=== PATIENT | female | born 1990 | race Caucasian/White ===

== ENCOUNTER 2018-10-28 11:01 | Emergency (ER) | payer MEDICAID ==
[2018-10-28] MEDS ORDERED: DIAZEPAM 5 MG TAB PO ONE (11:29)
[2018-10-28] MEDS ORDERED: HYDROCODONE/APAP 5/325 TAB PO ONE (11:30)
[2018-10-28] MEDS ORDERED: IBUPROFEN 600 MG TAB PO ONE (11:30)
[2018-10-28] MEDS ORDERED: DIAZEPAM 5 MG PREPACK#4 BTL TAKEHOME ONE (12:40)
--- NOTE | 2018-10-28 12:48 | EDPHY ---
H & P Time Seen by Provider: 10/28/18 11:06 HPI/ROS: CHIEF COMPLAINT: Low back pain, blood in urine. HISTORY OF PRESENT ILLNESS: Patient states that she has "severe back pain". She states it began Wednesday morning when she woke up. She states she "thought I slept weird". She did take 1 Aleve without much help. She denies any recent trauma. She has had no fevers or chills. She did not have any unusual physical activity. In addition she states that she noticed "drops" of blood in her urine last night and this morning her urine was dark orange. She denies dysuria but she has noticed some frequency. She had her last menstrual period finish eating on October 18. She has had no vaginal discharge. The back pain is described as bilateral lower back pain. It is worse with essentially any movement. It is also worse with deep breath but patient denies shortness of breath or chest pain. No incontinence. No numbness or weakness. REVIEW OF SYSTEMS: Constitutional: No fever, no chills. Eyes: No discharge. ENT: No sore throat. Cardiovascular: No chest pain, no palpitations. Respiratory: No cough, no shortness of breath. Gastrointestinal: No abdominal pain, no vomiting. Genitourinary: Per HPI Musculoskeletal: Per HPI Skin: No rashes. Neurological: No headache. General Appearance: Alert, mild distress Eyes: Pupils equal and round no pallor or injection. ENT, Mouth: Mucous membranes moist. Respiratory: There are no retractions, lungs are clear to auscultation. Cardiovascular: Regular rate and rhythm. Gastrointestinal: Abdomen is soft and nontender, bowel sounds normal. Neurological: Awake, alert, cranial nerves intact. No focal neurologic deficits. Skin: Warm and dry, no rashes. Musculoskeletal: Neck is supple nontender. Extremities are symmetrical, full range of motion, no edema. No CT LS spine tenderness to palpation. Bilateral paraspinal muscles in the mid and low back with palpable muscle spasm and very tender to touch. Normal straight leg raise. Psychiatric: Patient is oriented X 3, she is anxious. Medical/surgical history: Anxiety, costochondritis Social history: Smokes tobacco. Smoking Status: Heavy smoker Constitutional: Initial Vital Signs Temperature (C) 36.5 C 10/28/18 11:07 Heart Rate 96 03/01/19 11:07 Respiratory Rate 18 10/28/18 11:07 Blood Pressure 138/111 H 10/28/18 11:07 O2 Sat (%) 98 10/28/18 11:07 Allergies/Adverse Reactions: No Known Allergies Allergy (Verified 10/28/18 11:08) Home Medications: Medication Instructions Recorded Ativan 10/28/18 Medical Decision Making - Diagnostics Imaging Results: Imaging Impressions Abdomen/Pelvis CT 10/28/18 11:31 Impression: 1. 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 2. Solitary nonobstructive right nephrolith. Results discussed with Bella Sheets at 12:04 PM. General information for patients regarding this examination can be found at [email or web address]. If you have questions or comments about this report, please contact me at [phone] (hospital) or [phone] (cell). Imaging: Discussed imaging studies w/ comber operator Radiologist ED Course/Re-evaluation: 12:00 radiology read of large pelvic mass consistent with dermoid cyst. 12:10 p.m. re-evaluated patient, she shows better movement and decreased pain after medications. Discussed CT scan findings. 12:[address] Zee, OBGYN, regarding likely dermoid cyst. Patient is to follow up with that office on Wednesday or Wednesday of next week for further evaluation. Differential Diagnosis: Differential diagnosis includes but is not limited to musculoskeletal back pain , kidney stone, urinary tract infection, pyelonephritis. After evaluation patient with 1 small right-sided nonobstructing kidney stone likely not causing her symptoms but may be contributing to the hematuria. Of note patient with large, 10 cm, dermoid cyst in the pelvic region. No signs of other intra- abdominal pathology or ureteral stone. No signs of urinary tract infection. Recommended she follow up with her primary care physician for possible referral to physical therapy for back pain. She has referral to OBGYN for cyst. Understands follow-up and return precautions. Stable for discharge. - Data Points Medications Given: Discontinued Medications Hydrocodone Bitart/Acetaminophen ([place] 5/325) 1 tab PO EDNOW ONE Stop: 10/28/18 11:31 Last Admin: 10/28/18 11:33 Dose: 1 tab Diazepam (Valium) 5 mg PO EDNOW ONE Stop: 10/28/18 11:30 Last Admin: 10/28/18 11:33 Dose: 5 mg Ibuprofen (Motrin) 600 mg PO EDNOW ONE Stop: 10/28/18 11:31 Last Admin: 10/28/18 11:33 Dose: 600 mg Point of Care Test Results: Urine Collection Date 10/28/18 Collection Time 11:10 HCG Results Negative Urine Dip Collection Date 10/28/18 Collection Time 11:10 Specific [place] (1.002-1.030) 1.025 PH (5.0-7.5) 6.0 Leukocytes (Negative) Negative Nitrites (Negative) Negative Protein (Negative) Negative Glucose (Negative) Negative Ketones (Negative) Trace Urobilnogen (0.2-1.0 EU) 0.2 Bilirubin (Negative) Negative Blood (Negative) 2+ Departure - Departure Clinical Impression: Dermoid cyst, Muscle spasm of back Hematuria Qualifiers: Hematuria type: unspecified type Qualified Code(s): R31.9 - Hematuria, unspecified Condition: Fair Instructions: Ovarian Cyst (ED), Muscle Spasm (ED) Additional Instructions: Call the prize jacker office at [phone] this afternoon to make an appointment to be seen on Wednesday or Wednesday of next week. For your back pain use the Valium as discussed. Also you should use 800 mg of ibuprofen every 6-8 hours for the next 48 hr. Take with food, drink plenty of water as well. You can then take it as needed for back pain and spasm. Call your primary care office today as well for follow-up for the back spasms. Have them send you to physical therapy. You should also discussed her anxiety with your primary care doctor as well. Return to the emergency department if you develop any new or concerning symptoms such as uncontrollable pain, nausea, vomiting, fevers or other new symptoms. Referrals: Ekaterina William, FUNMILAYO [Primary Care Provider] - As per Instructions Debi Zee DO [Doctor of Osteopathy] - As per Instructions
[2018-10-28 13:24] VITALS: BP 135/92
== END 2018-10-28 13:00 | disposition home or self-care (01) ==
LOC: CED 11:01
DX: D27.9 Benign neoplasm of unspecified ovary (principal); R31.9 Hematuria, unspecified; M62.830 Muscle spasm of back; F17.200 Nicotine dependence, unspecified, uncomplicated; F41.9 Anxiety disorder, unspecified
CPT/HCPCS: 74176-PO

== ENCOUNTER 2018-11-05 10:36 | Emergency (ER) | payer MEDICAID ==
--- NOTE | 2018-11-05 10:59 | EDPHY ---
H & P Stated Complaint: nausea x 2 days and vomiting this am . 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 She presented at that time with abdominal discomfort and hematuria. She is also found to have a renal stone but no ureteral stone. She followed up with OBGYN this week and had an ultrasound that confirmed a large dermoid cyst and she has surgery planned for next week. She states however that over the last 2 days she began to feel nauseous and today has vomited twice. Nonbloody, no diarrhea. No fever. Her test was negative last week. She does have an IUD in place. No vaginal bleeding or discharge. Currently having no urinary symptoms. Severity: Moderate Modifying factors: None REVIEW OF SYSTEMS: Constitutional: denies: chills, fever, recent illness, recent injury EENTM: denies: blurred vision, double vision, nose congestion Respiratory: denies: cough, shortness of breath Cardiac: denies: chest pain, irregular heart rate, lightheadedness, palpitations Gastrointestinal/Abdominal: See HPI Genitourinary: denies: dysuria, frequency, hematuria, pain Musculoskeletal: denies: joint pain, muscle pain Skin: denies: lesions, rash, jaundice, bruising Neurological: denies: headache, numbness, paresthesia, tingling, dizziness, weakness Hematologic/Lymphatic: denies: blood clots, easy bleeding, easy bruising Immunologic/allergic: denies: HIV/AIDS, transplant 10 systems reviewed and negative except as noted EXAM: GENERAL: Well-appearing, well-nourished and in no acute distress. HEAD: Atraumatic, normocephalic. EYES: Pupils equal round and reactive to light, extraocular movements intact, sclera anicteric, conjunctiva are normal. ENT: TMs normal, nares patent, oropharynx clear without exudates. Moist mucous membranes. NECK: Normal range of motion, supple without lymphadenopathy or JVD. LUNGS: Breath sounds clear to auscultation bilaterally and equal. No wheezes rales or rhonchi. HEART: Regular rate and rhythm without murmurs, rubs or gallops. ABDOMEN: Soft, nontender, normoactive bowel sounds. No guarding, no rebound. No masses appreciated. BACK: No CVA tenderness, no spinal tenderness, step-offs or deformities EXTREMITIES: Normal range of motion, no pitting or edema. No clubbing or cyanosis. NEUROLOGICAL: Cranial nerves II through XII grossly intact. Normal speech, normal gait. 5/5 strength, normal movement in all extremities, normal sensation , normal reflexes PSYCH: Normal mood, normal affect. SKIN: Warm, dry, normal turgor, no visible rashes or lesions. Source: Patient Exam Limitations: No limitations - Personal History LMP (Females 10-55): 22-28 Days Ago Current Tetanus Diphtheria and Acellular Pertussis (TDAP): Yes Tetanus Vaccine Date: WITHIN 10 YRS - Medical/Surgical History Hx Asthma: No Hx Chronic Respiratory Disease: No Hx Diabetes: No Hx Cardiac Disease: No Hx Renal Disease: No Hx Cirrhosis: No Hx Alcoholism: No Hx HIV/AIDS: No Hx Splenectomy or Spleen Trauma: No Other PMH: Anxiety - Family History Significant Family History: No pertinent family hx - Social History Smoking Status: Heavy smoker Alcohol Use: None Constitutional: Initial Vital Signs Temperature (C) 36.9 C 11/05/18 10:43 Heart Rate 97 11/05/18 10:43 Respiratory Rate 20 11/05/18 10:43 Blood Pressure 125/96 H 11/05/18 10:43 O2 Sat (%) 98 11/05/18 10:43 O2 Delivery Mode Room Air Allergies/Adverse Reactions: No Known Allergies Allergy (Verified 11/05/18 10:47) Home Medications: Medication Instructions Recorded Ativan 10/28/18 Metoclopramide [Reglan 10 mg tab 10 mg PO BID PRN #10 tab 11/05/18 (RX)] Valium 5 MG (*) 11/05/18 Medical Decision Making - Diagnostics Imaging Results: Imaging Impressions Pelvic/Renal Ultrasound 11/05/18 10:56 Impression: 1. Intrauterine IUD slightly penetrates into the inner margin of the right uterine myometrium. 2. Left ovarian dermoid (see CT report of October 28, 2018). 3. Normal right ovary. A message was [place] with Ra[place] [facility] [place] 1:01 PM ED Course/Re-evaluation: 1:15 p.m. the patient is still somewhat nauseous. She has not thrown up. She has been hydrated. She continues to decline pain medication. Will add Reglan. We discussed her lab work which is reassuring. Discussed her ultrasound. Left ovary is not visible compared to the cyst and therefore unable to rule out torsion. She states that her OBGYN is likely planning to take her entire ovary out any ways next week. There waiting for a call back on the appointment. 2:00 p.m. The patient is feeling much better after Reglan. She is eager to go home. Differential Diagnosis: Partial list of the Differential diagnosis considered include but were not limited to; ovarian cyst, ovarian torsion, gastroenteritis, and although unlikely based on the history and physical exam, I also considered appendicitis, biliary disease, UTI. I discussed these differential diagnoses and the plan with the patient as well as the usual and expected course. The patient understands that the diagnosis is provisional and that in medicine we are not always correct and that further workup is often warranted. Usual and customary warnings were given. All of the patient's questions were answered. The patient was instructed to return to the emergency department should the symptoms at all worsen or return, otherwise to followup with the physician as we discussed. - Data Points Laboratory Results: 11/05/18 11:12 POC Sodium 142 mEq/L mEq/L (135-145) POC Potassium 3.5 mEq/L mEq/L (3.3-5.0) POC Chloride 107.0 mEq/L mEq/L (97-110) POC Total CO2 20 mEq/L L mEq/L (22-31) POC BUN 12 mg/dL mg/dL (7-23) POC Creatinine 0.5 mg/dL L mg/dL (0.6-1.0) POC Glucose 94 mg/dL mg/dL (70-100) POC Calcium 9.4 mg/dL mg/dL (8.5-10.4) POC Total Bilirubin 0.8 mg/dL mg/dL (0.1-1.4) POC AST 28 IU/L IU/L (14-46) POC ALT 16 IU/L IU/L (9-52) POC Alk Phosphatase 50 IU/L IU/L (38-126) POC Total Protein 7.1 g/dL g/dL (6.3-8.2) POC Albumin 4.0 g/dL g/dL (3.5-5.0) Medications Given: Discontinued Medications Sodium Chloride (Ns) 1,000 mls @ 0 mls/hr IV EDNOW ONE; Wide Open PRN Reason: Protocol Stop: 11/05/18 10:53 Last Admin: 11/05/18 11:06 Dose: 1,000 mls Metoclopramide HCl (Reglan Injection) 10 mg IVP EDNOW ONE Stop: 11/05/18 13:11 Last Admin: 11/05/18 13:20 Dose: 10 mg Ondansetron HCl (Zofran) 4 mg IVP EDNOW ONE Stop: 11/05/18 10:53 Last Admin: 11/05/18 11:07 Dose: 4 mg Point of Care Test Results: CBC CBC Collection Date 11/05/18 CBC Collection Time 11:00 WBC 8.3 RBC 4.95 HGB 15.7 HCT 46 PLT 293 Neut # 5.04 Neut 60.8 LYMPH # 2.65 LYMPH 31.9 MCV 92.9 Chemistry 11/05/18 11:12 POC Sodium 142 mEq/L mEq/L (135-145) POC Potassium 3.5 mEq/L mEq/L (3.3-5.0) POC Chloride 107.0 mEq/L mEq/L (97-110) POC Total CO2 20 mEq/L L mEq/L (22-31) POC BUN 12 mg/dL mg/dL (7-23) POC Creatinine 0.5 mg/dL L mg/dL (0.6-1.0) POC Glucose 94 mg/dL mg/dL (70-100) POC Calcium 9.4 mg/dL mg/dL (8.5-10.4) POC Total Bilirubin 0.8 mg/dL mg/dL (0.1-1.4) POC AST 28 IU/L IU/L (14-46) POC ALT 16 IU/L IU/L (9-52) POC Alk Phosphatase 50 IU/L IU/L (38-126) POC Total Protein 7.1 g/dL g/dL (6.3-8.2) POC Albumin 4.0 g/dL g/dL (3.5-5.0) Urine Collection Date 11/05/18 Collection Time 11:45 HCG Results Negative Urine Dip Collection Date 11/05/18 Collection Time 11:45 Specific [place] (1.002-1.030) 1.015 PH (5.0-7.5) 7.0 Leukocytes (Negative) Negative Nitrites (Negative) Negative Protein (Negative) Negative Glucose (Negative) Negative Ketones (Negative) Negative Urobilnogen (0.2-1.0 EU) 0.2 Bilirubin (Negative) Negative Blood (Negative) Trace Departure - Departure Disposition: Home, Routine, Self-Care Clinical Impression: Left ovarian cyst Vomiting Qualifiers: Vomiting type: unspecified Vomiting Intractability: non-intractable Nausea presence: with nausea Qualified Code(s): R11.2 - Nausea with vomiting, unspecified Condition: Fair Instructions: Ovarian Cyst (ED), Acute Nausea and Vomiting (ED) Referrals: Unknown,Unknown [Primary Care Provider] - As per Instructions Vel Sanchez MD [Medical Doctor] - 2-3 days without fail Prescriptions: Metoclopramide [Reglan 10 mg tab (RX)] 10 mg PO BID PRN #10 tab PRN Reason: Headache
[2018-11-05] MEDS: NS 1,000 ML IV ONE (11:06)
[2018-11-05] MEDS: ONDANSETRON 4 MG/2 ML VIAL IVP ONE (11:07)
[2018-11-05] MEDS: METOCLOPRAMIDE 10 MG/2 ML VIAL IVP ONE (13:20)
[2018-11-05 14:10] VITALS: BP 124/76
== END 2018-11-05 14:18 | disposition home or self-care (01) ==
LOC: CED 10:36
DX: N83.202 Unspecified ovarian cyst, left side (principal)
CPT/HCPCS: 76856-PO; 80053-ER; 96361-ER; 96374-ER; 96375-ER; J2405; J2765

== ENCOUNTER 2018-11-15 13:16 | Emergency (ER) | payer MEDICAID ==
[2018-11-15] MEDS ORDERED: LORazepam 1 MG TAB PO ONE (13:32)
--- NOTE | 2018-11-15 13:38 | EDPHY ---
H & P Time Seen by Provider: 11/15/18 13:23 HPI/ROS: HPI Anxiety attack. 28-year-old female by private vehicle with her boyfriend. She has a history of anxiety. She reports that she woke up feeling anxious. She reports that she has been prescribed both Valium and Ativan in the past for anxiety. She tells me that her boyfriend gave her a quarter tablet of a 1 mg Ativan tablets earlier this morning and she had no relief in her symptoms. She now states that her face feels numb in her hands and feet feel numb and her anxiety has worsened and she does not know what to do to stop it. She has been prescribed Wellbutrin as well for her anxiety disorder but does not take this because she tells me she "does not like taking medication ". No other associated signs or symptoms. She reports that she has had anxiety/panic attacks similar to this in the past. She reports she thinks that her upcoming surgery for an ovarian cyst and the impending pain from this started her anxiety attack. ROS: Constitutional: No fever, no chills. As above. Eyes: No discharge. No changes in vision. ENT: No sore throat. No nasal congestion or rhinorrhea. Respiratory: No cough. No shortness of breath. Cardiac: No chest pain, no palpitations. Gastrointestinal: No abdominal pain, no vomiting, no diarrhea. Genitourinary: No hematuria. No dysuria or increased frequency with urination. Musculoskeletal: No back pain. No neck pain. No myalgias or arthralgias. Skin: No rashes. Neurological: No headache. No focal weakness or altered sensation. Past medical history: Anxiety. As above. Social history: Heavy smoker. No alcohol. Here with boyfriend. Physical Exam: General Appearance: Alert, anxious but not in distress. This patient is responding to questions appropriately and in full sentences. This patient appears well-hydrated and well-nourished. Eyes: Pupils equal and round no pallor or injection. No lid edema, erythema or injection. Respiratory: There are no retractions, lungs are clear to auscultation with good air movement bilaterally. Cardiovascular: Regular rate and rhythm. No murmur. Gastrointestinal: Abdomen is soft and nontender, no masses, bowel sounds normal. No focal tenderness at McBurney's point. No Lugo sign. Neurological: Motor sensory function is grossly intact. Cranial nerves are normal. Gait is normal. Skin: Warm and dry, no rashes. Musculoskeletal: Neck is supple and nontender. Extremities are symmetrical. All joints range without pain or impingement. Psychiatric: No agitation. No depression. Database: EKG: Imaging: Procedures: Emergency department course: Triage vital signs reviewed. She is moderately hypertensive. Vital signs are otherwise normal. She is afebrile. Her presentation is consistent with a panic attack. She will be given 1 mg of oral Ativan. 2:30 p.m., the patient was re-evaluated, she is much more comfortable at this time. She feels better after above medication. She appears relaxed and comfortable. She does feel comfortable going home with her boyfriend and I feel she is safe for discharge. Follow-up and return to emergency department precautions have been reviewed with her. All of her questions were answered. She was discharged in good condition with her boyfriend who is driving. Differential Diagnosis: The differential diagnosis on this patient includes but is not limited to anxiety reaction, panic attack. Seizure, CVA unlikely. This represents a partial list of diagnoses considered. These considerations are based on history , physical exam, past history, reassessment and diagnostic testing. Smoking Status: Heavy smoker Constitutional: Initial Vital Signs Temperature (C) 36.6 C 11/15/18 13:20 Heart Rate 85 11/15/18 13:20 Respiratory Rate 20 11/15/18 13:20 Blood Pressure 160/97 H 11/15/18 13:20 O2 Sat (%) 100 11/15/18 13:20 O2 Delivery Mode Room Air Allergies/Adverse Reactions: No Known Allergies Allergy (Verified 11/05/18 10:47) Home Medications: Medication Instructions Recorded Ativan 10/28/18 Valium 5 MG (*) 11/05/18 Medical Decision Making - Data Points Medications Given: Discontinued Medications Lorazepam (Ativan) 1 mg PO EDNOW ONE Stop: 11/15/18 13:33 Last Admin: 11/15/18 13:52 Dose: 1 mg Departure - Departure Disposition: Home, Routine, Self-Care Clinical Impression: Panic attack Condition: Good Instructions: Panic Attack (ED) Additional Instructions: Read and follow provided instructions. Follow-up with your primary care physician in 1-2 days for re-evaluation. Take your medication as prescribed only. Return to the emergency department for worsening symptoms, worsening anxiety or other serious concerns. Referrals: Ekaterina William PAC [Primary Care Provider] - As per Instructions
[2018-11-15 14:28] VITALS: BP 122/62
== END 2018-11-15 14:26 | disposition home or self-care (01) ==
LOC: CED 13:16
DX: F41.0 Panic disorder [episodic paroxysmal anxiety] (principal); F17.200 Nicotine dependence, unspecified, uncomplicated
CPT/HCPCS: 99283-ER

== ENCOUNTER 2018-12-12 17:56 | Emergency (ER) | payer MEDICAID ==
[2018-12-12] MEDS ORDERED: NS 1,000 ML IV ONE (18:18)
[2018-12-12] MEDS ORDERED: METOCLOPRAMIDE 10 MG/2 ML VIAL IVP ONE (18:18)
[2018-12-12] MEDS ORDERED: LORazepam 2 MG/ML INJ IVP ONE (18:19)
--- NOTE | 2018-12-12 18:22 | EDPHY ---
H & P Stated Complaint: states headache today and vomiting . Time Seen by Provider: 12/12/18 18:09 HPI/ROS: CHIEF COMPLAINT: Headache, nausea and vomiting HISTORY OF PRESENT ILLNESS: Patient is a 28-year-old female who has been suffering from a dermoid cyst for the last several months. She has surgery planned on the with OBGYN. She states that throughout the day she has had a gradually worsening headache and she typically takes ibuprofen for this but cannot because she was told not to take NSAIDs the week before the surgery. The she thinks that her headaches have increased recently because she began taking Prozac about 3 weeks ago. She states her gradually worsening headache has triggered her anxiety and she is now shaking and panicked. She denies any head trauma. She denies any focal weakness or deficits. This is not the worst headache of her life. No fevers. No vision or hearing changes. She is requesting IV medications for nausea headache. She denies risk of . She has an IUD in place. Severity: Severe Modifying factors: Gradually worsening with time REVIEW OF SYSTEMS: Constitutional: denies: chills, fever, recent illness, recent injury EENTM: denies: blurred vision, double vision, nose congestion Respiratory: denies: cough, shortness of breath Cardiac: denies: chest pain, irregular heart rate, lightheadedness, palpitations Gastrointestinal/Abdominal: See HPI denies: abdominal pain, diarrhea, blood streaked stools Genitourinary: denies: dysuria, frequency, hematuria, pain Musculoskeletal: denies: joint pain, muscle pain Skin: denies: lesions, rash, jaundice, bruising Neurological: See HPI denies: numbness, paresthesia, tingling, dizziness, weakness Hematologic/Lymphatic: denies: blood clots, easy bleeding, easy bruising Immunologic/allergic: denies: HIV/AIDS, transplant 10 systems reviewed and negative except as noted EXAM: GENERAL: Well-appearing, well-nourished and in no acute distress. HEAD: Atraumatic, normocephalic. EYES: Pupils equal round and reactive to light, extraocular movements intact, sclera anicteric, conjunctiva are normal. ENT: TMs normal, nares patent, oropharynx clear without exudates. Moist mucous membranes. NECK: Normal range of motion, supple without lymphadenopathy or JVD. LUNGS: Breath sounds clear to auscultation bilaterally and equal. No wheezes rales or rhonchi. HEART: Regular rate and rhythm without murmurs, rubs or gallops. ABDOMEN: Soft, nontender, normoactive bowel sounds. No guarding, no rebound. No masses appreciated. BACK: No CVA tenderness, no spinal tenderness, step-offs or deformities EXTREMITIES: Normal range of motion, no pitting or edema. No clubbing or cyanosis. NEUROLOGICAL: Cranial nerves II through XII grossly intact. Normal speech, normal gait. 5/5 strength, normal movement in all extremities, normal sensation , normal reflexes PSYCH: Normal mood, normal affect. SKIN: Warm, dry, normal turgor, no visible rashes or lesions. Source: Patient Exam Limitations: No limitations - Personal History LMP (Females 10-55): Now Current Tetanus Diphtheria and Acellular Pertussis (TDAP): Yes Tetanus Vaccine Date: WITHIN 10 YRS - Medical/Surgical History Hx Asthma: No Hx Chronic Respiratory Disease: No Hx Diabetes: No Hx Cardiac Disease: No Hx Renal Disease: No Hx Cirrhosis: No Hx Alcoholism: No Hx HIV/AIDS: No Hx Splenectomy or Spleen Trauma: No Other PMH: Anxiety , ovarian dermoid cyst - Family History Significant Family History: No pertinent family hx - Social History Smoking Status: Heavy smoker Alcohol Use: None Drug Use: None Constitutional: Initial Vital Signs Temperature (C) 36.9 C 12/12/18 18:07 Heart Rate 80 12/12/18 18:07 Respiratory Rate 18 12/12/18 18:07 Blood Pressure 135/86 H 12/12/18 18:07 O2 Sat (%) 97 12/12/18 18:07 O2 Delivery Mode Room Air Allergies/Adverse Reactions: No Known Allergies Allergy (Verified 12/12/18 18:03) Home Medications: Medication Instructions Recorded LORazepam [Ativan (*)] 0.25 - 1 mg PO DAILY PRN 10/28/18 FLUoxetine [Prozac 20 MG (*)] 20 mg PO DAILY 12/05/18 Ibuprofen [Motrin (*)] 200 mg PO DAILY PRN 12/05/18 Metoclopramide [Reglan 10 mg tab 10 mg PO BID PRN #10 tab 12/12/18 (RX)] Medical Decision Making ED Course/Re-evaluation: 8:00 p.m. the patient has been sleeping for an hour. She feels completely better. She is no longer nauseous and is tolerating p.o.. She declines further workup and is eager to go home. We did run a CBC because she was scheduled to have this tested as an outpatient today but was unable to go to the lab. She requested that we run it here. Differential Diagnosis: Partial list of the Differential diagnosis considered include but were not limited to; gastroenteritis, vomiting, headache, anxiety, ovarian cyst and although unlikely based on the history and physical exam, I also considered meningitis, sepsis, trauma, tumor. I discussed these differential diagnoses and the plan with the patient as well as the usual and expected course. The patient understands that the diagnosis is provisional and that in medicine we are not always correct and that further workup is often warranted. Usual and customary warnings were given. All of the patient's questions were answered. The patient was instructed to return to the emergency department should the symptoms at all worsen or return, otherwise to followup with the physician as we discussed. - Data Points Laboratory Results: Laboratory Results 12/12/18 18:30 Medications Given: Discontinued Medications Sodium Chloride (Ns) 1,000 mls @ 0 mls/hr IV ONCE ONE; Wide Open PRN Reason: Protocol Stop: 12/12/18 18:19 Last Admin: 12/12/18 18:34 Dose: 1,000 mls Lorazepam (Ativan Injection) 1 mg IVP EDNOW ONE Stop: 12/12/18 18:20 Last Admin: 12/12/18 18:34 Dose: 1 mg Metoclopramide HCl (Reglan Injection) 10 mg IVP EDNOW ONE Stop: 12/12/18 18:19 Last Admin: 12/12/18 18:34 Dose: 10 mg Departure - Departure Disposition: Home, Routine, Self-Care Clinical Impression: Headache Qualifiers: Headache type: unspecified Headache chronicity pattern: acute headache Intractability: not intractable Qualified Code(s): R51 - Headache Vomiting Qualifiers: Vomiting type: unspecified Vomiting Intractability: non-intractable Nausea presence: with nausea Qualified Code(s): R11.2 - Nausea with vomiting, unspecified Medication reaction Qualifiers: Encounter type: initial encounter Qualified Code(s): T50.905A - Adverse effect of unspecified drugs, medicaments and biological substances, initial encounter Condition: Fair Instructions: Acute Headache (ED), Acute Nausea and Vomiting (ED) Referrals: Ekaterina William, PAC [Primary Care Provider] - As per Instructions Prescriptions: Metoclopramide [Reglan 10 mg tab (RX)] 10 mg PO BID PRN #10 tab PRN Reason: Headache
[2018-12-12 19:40] LABS: PLATELET COUNT 293 10^3/uL (150-400)
[2018-12-12 20:07] VITALS: BP 117/71
== END 2018-12-12 20:06 | disposition home or self-care (01) ==
LOC: CED 17:56
DX: R51 Headache (principal); R11.2 Nausea with vomiting, unspecified; T43.225A Adverse effect of selective serotonin reuptake inhibitors, initial encounter
CPT/HCPCS: 96361-ER; 96374-ER; 96375-ER; 99284-ER; J2060; J2765

== ENCOUNTER 2018-12-20 05:33 | Observation (INO) | payer MEDICAID, OTHER ==
--- NOTE | 2018-12-19 17:57 | PDGENHP ---
History and Physical - Chief Complaint 10cm Dermoid cyst, malpositioned IUD - History of Present Illness Polina is a 28 yo (two elective ABs) who I saw in clinic for ER f/u after presenting with acute pelvic pain and found to have 10cm central pelvic mass consistent with dermoid. No evidence of torsion. We ordered an US in clinic that confirmed mostly fat and soft tissue containing dermoid 10.3cm filling the central pelvis but seems to be eminating from the left ovary, right ovary appears normal on US. IUD appears to be malpositioned in the lower uterine segment. Pain has been controlled on PRN narcotics, but still very uncomfortable. No h/o ovarian cysts in the past, dermoid or otherwise. History Information - Allergies/Home Medication List Allergies/Adverse Reactions: No Known Allergies Allergy (Verified 12/12/18 18:03) Home Medications: LORazepam [Ativan (*)] 0.25 - 1 mg PO DAILY PRN 10/28/18 [Last Taken Unknown] FLUoxetine [Prozac 20 MG (*)] 20 mg PO DAILY 12/05/18 [Last Taken Unknown] Ibuprofen [Motrin (*)] 200 mg PO DAILY PRN 12/05/18 [Last Taken Unknown] I have personally reviewed and updated: family history, medical history, social history, surgical history Past Medical History: Depression/anxiety, Costochondritis, Tobacco abuse, Kidney stone (1.7mm non obstructing stone in the right upper pole - found on same ER CT scan) - Surgical History Additional surgical history: TAB x 2 - Social History Smoking Status: Heavy smoker Review of Systems Review of Systems: ROS: 10pt was reviewed & negative except for what was stated in HPI & below Physical Exam Physical Exam: Constitutional: no apparent distress, appears nourished Eyes: PERRL, anicteric sclera Ears, Nose, Mouth, Throat: moist mucous membranes, hearing normal Cardiovascular: regular rate and rhythym Respiratory: no respiratory distress, clear to auscultation Skin: warm, normal color, no rashes or abrasions Musculoskeletal: full muscle strength, normal joint ROM Neurologic: AAOx3 Assessment & Plan Assessment: Preop: Exploratory laparotomy, unilateral ovarian cystectomy for suspected 10.3cm dermoid. Routine preop orders - Ancef 2g ordered manager pulmonary for OR. Consents signed in clinic, faxed to OR. Likely 1-2 nights in hospital postop. JANAE
[2018-12-20] MEDS ORDERED: ceFAZolin 2 GM/DEXTROSE 100 ML IV ONE (05:40)
[2018-12-20] MEDS ORDERED: LR 1,000 ML IV ONE (05:41)
[2018-12-20] MEDS ORDERED: CEFAZOLIN 2 GM/DEXTROSE/100 ML BAG IV ONE (05:55)
--- NOTE | 2018-12-20 07:01 | PDANEPAE ---
ANE Past Medical History - Cardiovascular History Hx Hypertension: No Hx Arrhythmias: No Hx Chest Pain: No Hx Coronary Artery / Peripheral Vascular Disease: No Hx CHF / Valvular Disease: No Hx Palpitations: No - Pulmonary History Hx COPD: No Hx Asthma/Reactive Airway Disease: No Hx Recent Upper Respiratory Infection: No Hx Oxygen in Use at Home: No Hx Sleep Apnea: No Sleep Apnea Screening Result - Last Documented: Negative - Neurologic History Hx Cerebrovascular Accident: No Hx Seizures: No Hx Dementia: No - Endocrine History Hx Diabetes: No - Renal History Hx Renal Disorders: No - Liver History Hx Hepatic Disorders: No - Neurological & Psychiatric Hx Hx Neurological and Psychiatric Disorders: Yes Neurological / Psychiatric History Comment: anxiety - Cancer History Hx Cancer: No - GI History Hx Gastrointestinal Disorders: No - Other Health History Other Health History: psoriasis mainly to scalp. bruises easily - Chronic Pain History Chronic Pain: No (kidney stone right kidney) - Surgical History Prior Surgeries: none in last 5 yrs. wisdom teeth extraction 2005 ANE Review of Systems Review of Systems: - Exercise capacity METS (RN): 4 METS ANE Patient History - Allergies Allergies/Adverse Reactions: No Known Allergies Allergy (Verified 12/12/18 18:03) - Home Medications Home Medications: LORazepam [Ativan (*)] 0.25 - 1 mg PO DAILY PRN 10/28/18 [Last Taken 12/13/18] FLUoxetine [Prozac 20 MG (*)] 20 mg PO DAILY 12/05/18 [Last Taken 12/19/18] Ibuprofen [Motrin (*)] 200 mg PO DAILY PRN 12/05/18 [Last Taken 12/13/18] - NPO status NPO Since - Liquids (Date): 12/19/18 NPO Since - Liquids (Time): 20:30 NPO Since - Solids (Date): 12/19/18 NPO Since - Solids (Time): 18:30 - Smoking Hx Smoking Status: Heavy smoker - Family Anes Hx Family Hx Anesthesia Complications: none ANE Labs/Vital Signs - Vital Signs Blood Pressure: 151/106 Heart Rate: 84 Respiratory Rate: 16 O2 Sat (%): 95 Height: 154.94 cm Weight: 49.895 kg ANE Physical Exam - Airway Mallampati Score: Class 1 - ASA Status ASA Status: II ANE Anesthesia Plan Anesthesia Plan: general endotracheal anesthesia
[2018-12-20] MEDS ORDERED: MIDAZOLAM 2 MG/2 ML VIAL ONE (07:05)
[2018-12-20] MEDS ORDERED: fentaNYL 100 MCG/2 ML INJ ONE ×3 (07:07→09:22)
[2018-12-20] MEDS ORDERED: PROPOFOL 200 MG/20 ML VIAL ONE (07:08)
[2018-12-20] MEDS ORDERED: ONDANSETRON 4 MG/2 ML VIAL ONE (07:10)
[2018-12-20] MEDS ORDERED: ROCURONIUM 50 MG/5 ML VIAL ONE (07:10)
[2018-12-20] MEDS ORDERED: METOCLOPRAMIDE 10 MG/2 ML VIAL ONE (07:11)
--- NOTE | 2018-12-20 07:14 | PDHPUP ---
History & Physical Update H&P update statement: This history and physical update is based on an assessment of the patient which was completed after admission or registration (within 24 hours), but prior to the surgery/procedure. H&P update: H&P reviewed & patient examined, no change in patient's condition since H&P completed
[2018-12-20] MEDS ORDERED: BUPIVACAINE/EPI 0.5% 30 ML SDV ONE (07:35)
[2018-12-20] MEDS ORDERED: SUGAMMADEX SODIUM 200 MG/2 ML VIAL IVP ONE (08:42)
[2018-12-20] MEDS ORDERED: ACETAMINOPHEN 500 MG TAB PO PRN (09:13)
[2018-12-20] MEDS ORDERED: NALOXONE HCL 0.4 MG/ML INJ IVP PRN (09:13)
[2018-12-20] MEDS ORDERED: PROMETHAZINE HCL 25 MG/ML INJ IVP PRN (09:13)
[2018-12-20] MEDS ORDERED: HYDROmorphONE/DILAUDID 1 MG/ML INJ ONE (09:13)
[2018-12-20] MEDS: HYDROmorphONE/DILAUDID 1 MG/ML INJ IVP PRN ×2 (09:13→09:25)
[2018-12-20] MEDS ORDERED: MEPERIDINE 25 MG/0.5 ML AMP IVP PRN (09:13)
[2018-12-20] MEDS ORDERED: LR 500 ML IV PRN (09:13)
[2018-12-20] MEDS ORDERED: ONDANSETRON 4 MG/2 ML VIAL IVP PRN ×2 (09:13→09:46)
--- NOTE | 2018-12-20 09:15 | POSTANESTH ---
Post Anesthetic Evaluation Cardiovascular Status: Normal, Stable Respiratory Status: Normal, Stable Level of Consciousness/Mental Status: Can Participate in Eval Pain Control: Adequate, Prn Tx Ordered Nausea/Vomiting Control: Adequate, Prn Tx Ordered Complications Possibly Related to Anesthesia: None Noted
[2018-12-20] MEDS ORDERED: DIAZEPAM 10 MG/2 ML SYR ONE (09:22)
[2018-12-20] MEDS: DIAZEPAM 10 MG/2 ML SYR IVP PRN ×2 (09:26→09:44)
[2018-12-20] MEDS: fentaNYL 100 MCG/2 ML INJ IVP PRN ×2 (09:45→10:07)
--- NOTE | 2018-12-20 09:45 | SUROPNOTE ---
[facility] Operative Report - Surgery Date of Operation: 12/20/18 Surgeon: Vel Sanchez Hearing Healthcare Practitioner: Fatou Bingham Anesthesiologist: Ector Carlson Anesthesia: GET(General Endotracheal) Pre-op Diagnosis: Adenxal/pelvic mass Post-op Diagnosis: Left ovarian dermoid cyst, 10cm Procedure: Exploratory laparotomy, left ovarian cystectomy Findings: 10cm left ovarian dermoid, mostly comprised of fat and hair Inf/Abcess present in the surg proc area at time of surgery?: No EBL: Minimal (20cc) Complications: None Specimen(s): Left ovarian cyst and contents Technique: The patient was brought to the operating room where she had a spinal placed and following this, general anesthesia was found to be adequate. She was positioned in low lithotomy and an exam under anesthesia was performed. She was prepped and draped in the usual sterile fashion and a cardoso catheter was placed under sterile conditions. Weight-based antibiotics were given, as well as 5,000 units of subcutaneous heparin. A vertical midline incision was made with a scalpel from the pubic symphysis to the inferior aspect of the umbilicus, and carried down to the level of the fascia using the bovie. The fascia was nicked in the midline and this incision was extended the length of the skin incision. The peritoneum was elevated, incised and this incision extended with care taken to note the position of the bladder. Upon entry into the abdomen, the abdomen and pelvis were explored with the findings noted above. Pelvic washings were not collected. A self-retaining Mcdermitt retractor was placed and retractors placed for optimal visualization. Moist laparotomy sponges were used to pack the bowel cephalad. The round ligaments were suture ligated and transected. The broad ligament was incised and this incision carried cephalad parallel to the ovarian vessels. The ureters were directly visualized bilaterally, although difficult to discern transperitoneally on the left. The infundibulopelvic ligaments were isolated, clamped, transected and suture ligated with 2 separate suture ligatures of 0 Vicryl. The vesicouterine peritoneum was incised and the bladder flap was created using fine dissection and cautery. The uterine arteries were skeletonized, clamped, transected and suture ligated. We also used the Ligasure device on the uterine pedicles due to their enlarged size on imaging due to large fibroids. The cardinal ligaments were clamped, transected and suture ligated. The uterosacral ligaments were clamped, transected and suture ligated. Aydin Clamps were placed across the vaginal at the level of the cervico-vaginal junction and the uterus, cervix, tubes and ovaries were amputated using Kaya scissors. 0 Vicryl sutures in Aydin suture ligatures were placed at the vaginal cuff angles and the remainder of the vaginal cuff was closed with figure of eight type suture ligatures of 0 Vicryl. Five in total. Excellent hemostasis was obtained after spot treatments with the bovie and one additional figure of eight suture. The pelvis was irrigated copiously. All vascular pedicles were hemostatic. All instruments and sponges were removed from the abdomen. The fascia was closed with two number 1 looped PDS in a running mass closure. One suture starting from each corner and being tied in the midline. The skin was closed with megan. A sterile dressing was applied. We did conclude with cystoscopy using 22fr sheath, 70 degree scope. Pt positioned into frog leg and scope inserted, bladder filled with 200cc sterile saline. Bladder clearly had no sharp or appreciable thermal or suture injuries. Water-tight. Bilateral UO's with strong jets of Pyridium stained urine. The patient tolerated the procedure well. All sponge, needle and instrument counts were announced as correct at the end of the case times two. I was scrubbed and present for the entire case, as was Dr. Webb, assisting.
[2018-12-20] MEDS ORDERED: ZOLPIDEM TARTRATE 5 MG TAB PO PRN (09:46)
[2018-12-20] MEDS ORDERED: ONDANSETRON DISINTEGRATING 4 MG TAB PO PRN (09:46)
[2018-12-20] MEDS ORDERED: KETOROLAC 30 MG/1 ML SDV IVP ONE (09:46)
[2018-12-20] MEDS ORDERED: METOCLOPRAMIDE 10 MG TAB PO PRN (09:51)
[2018-12-20] MEDS ORDERED: LORazepam 1 MG TAB PO PRN (09:51)
[2018-12-20] MEDS ORDERED: HYDROmorphONE/DILAUDID 1 MG/ML INJ IVP PRN (09:53)
[2018-12-20] MEDS ORDERED: D5W NS 1,000 ML IV SCH (10:00)
[2018-12-20] MEDS ORDERED: FLUoxetine 20 MG CAP PO SCH (10:00)
[2018-12-20] MEDS ORDERED: KETOROLAC 30 MG/1 ML SDV ONE ×2 (10:08→10:25)
[2018-12-20] MEDS: oxyCODONE IR 5 MG TAB PO PRN ×2 (12:18→16:18)
[2018-12-20] MEDS ORDERED: ACETAMINOPHEN 500 MG TAB PO SCH (14:00)
[2018-12-20] MEDS ORDERED: IBUPROFEN 600 MG TAB PO SCH (14:00)
[2018-12-20 16:14] VITALS: BP 129/73
[2018-12-20] MEDS ORDERED: KETOROLAC 30 MG/1 ML SDV IVP SCH (16:30)
[2018-12-21] MEDS ORDERED: IBUPROFEN 600 MG TAB PO SCH (16:30)
== END 2018-12-20 18:19 | disposition home or self-care (01) ==
LOC: F3N 05:33 → INTOOBSV 05:33 → FOB 10:34
PROVIDERS: ADMIT Obstetrics & Gynecology; ATTEND Obstetrics & Gynecology
DX: D27.9 Benign neoplasm of unspecified ovary (principal); T83.32XA Displacement of intrauterine contraceptive device, initial encounter; F32.9 Major depressive disorder, single episode, unspecified; F41.9 Anxiety disorder, unspecified; Z87.442 Personal history of urinary calculi
CPT/HCPCS: 58925; G0378; J0690; J1170; J1885; J2250; J2405; J2704; J2765; J3010; J3360